=== PATIENT | female | born 1965 | race Caucasian/White ===

== ENCOUNTER 2018-07-01 17:01 | Inpatient (IN) ==
[2018-07-01] MEDS ORDERED: NITROGLYCERIN SL 0.4 MG TABLET SL PRN (17:28)
[2018-07-01] MEDS ORDERED: ENOXAPARIN 100 MG/ML SYRINGE SUBCUT STA (17:28)
[2018-07-01 17:58] LABS: Basophils # 0.1 10*3/uL (0.0-0.2); Basophils % 0.7 % (0.0-0.8); Eosinophils # 0.2 10*3/uL (0.0-0.87); Eosinophils % 1.6 % (0.00-10.9); Hematocrit 43.8 VOL% (35.7-47.0); Hemoglobin 14.8 GM/DL (12.0-16.0); Immature Granulocytes % 0.5 %; Immature Granulocytes Absolute 0.07 #; Lymphocytes # 4.7 10*3/uL (1.4-4.0); Lymphocytes % 34.9 % (21.3-54.2); Mean Corpuscular HGB Conc 33.8 GM/DL (32-36); Mean Corpuscular Hemoglobin 31 PG (27-34); Mean Corpuscular Volume 90.9 FL (87-102); Mean Platelet Volume 8.6 FL (9.6-12.0); Monocytes % 7.3 % (1.7-12.7); Neutrophils # 7.4 10*3/uL (1.4-7.4); Platelet Count 350 T/CUMM (130-400); Red Blood Count 4.82 MC/CUMM (3.8-5.5); Red Cell Distribution Width 12.9 % (9.3-17.3); White Blood Count 13.5 T/CUMM (4-12)
[2018-07-01 18:21] LABS: Albumin 3.8 G/DL (3.4-5.0); Bilirubin,Total 0.4 MG/DL (0.2-1.0); Calcium 8.4 MG/DL (8.5-10.1); Osmolality,Calculated 281.3 MOS/KG (273-304); PT Patient Result 10.2 SECS; Total Protein 7.6 G/DL (6.4-8.3)
[2018-07-01] MEDS ORDERED: ONDANSETRON 4 MG/2 ML VIAL IV PRN (20:43)
[2018-07-01] MEDS ORDERED: MAGNESIUM SULF RIDER 2 GM in PREMIX 1 EACH IV PRN (20:43)
[2018-07-01] MEDS ORDERED: FAMOTIDINE 20 MG TABLET PO PRN (20:43)
[2018-07-01] MEDS ORDERED: HYDROmorphone 2 MG/1 ML VIAL IV PRN (20:43)
[2018-07-01] MEDS ORDERED: POTASSIUM CHLORIDE 20 MEQ TABLET PO PRN (20:43)
[2018-07-01] MEDS ORDERED: ALBUTEROL/IPRATROPIUM 3 ML NEB RESP TX PRN (20:43)
[2018-07-01] MEDS ORDERED: MAGNESIUM SULF RIDER 4 GM in PREMIX 1 EACH IV PRN (20:43)
[2018-07-01] MEDS ORDERED: SODIUM CHLORIDE 0.9% 1,000 ML IV SCH (20:43)
[2018-07-01] MEDS ORDERED: NICOTINE 21 MG/24 HR PATCH TRANSDERM PRN (20:43)
[2018-07-01] MEDS ORDERED: CLOPIDOGREL 75 MG TABLET PO SCH (21:00)
[2018-07-01] MEDS: LORazepam 1 MG TABLET PO SCH (21:20)
[2018-07-01] MEDS: LISINOPRIL 10 MG TABLET PO SCH (21:20)
[2018-07-01] MEDS: methylPREDNISolone SOD SUC 40 MG/1 ML VIAL IV SCH (21:21)
[2018-07-02 05:27] LABS: Basophils # 0.1 10*3/uL (0.0-0.2); Basophils % 0.5 % (0.0-0.8); Eosinophils % 0.1 % (0.00-10.9); Hematocrit 44.9 VOL% (35.7-47.0); Hemoglobin 15.4 GM/DL (12.0-16.0); Immature Granulocytes % 0.9 %; Immature Granulocytes Absolute 0.09 #; Lymphocytes # 2.6 10*3/uL (1.4-4.0); Lymphocytes % 26.1 % (21.3-54.2); Mean Corpuscular HGB Conc 34.3 GM/DL (32-36); Mean Corpuscular Hemoglobin 31 PG (27-34); Mean Platelet Volume 9.1 FL (9.6-12.0); Monocytes # 0.1 10*3/uL (0.11-0.8); Monocytes % 1.4 % (1.7-12.7); NRBC # 0.02 10*3/uL; Neutrophils # 7.1 10*3/uL (1.4-7.4); Platelet Count 362 T/CUMM (130-400); Red Blood Count 4.99 MC/CUMM (3.8-5.5); Red Cell Distribution Width 12.9 % (9.3-17.3)
[2018-07-02] MEDS: methylPREDNISolone SOD SUC 40 MG/1 ML VIAL IV SCH ×3 (05:45→21:56)
[2018-07-02] MEDS ORDERED: ENOXAPARIN 80 MG/0.8 ML SYRINGE SUBCUT SCH (06:00)
[2018-07-02 06:08] LABS: Albumin 3.6 G/DL (3.4-5.0); Bilirubin,Total 0.7 MG/DL (0.2-1.0); Calcium 8.8 MG/DL (8.5-10.1); Osmolality,Calculated 285.4 MOS/KG (273-304); Potassium 4.2 MMOL/L (3.5-5.1); Risk Ratio 10.04; Thyroid Stimulating Hormone 0.613 uIU/ml (0.358-3.74); Total Protein 7.5 G/DL (6.4-8.3); VLDL CHOLESTEROL 69.4 MG/DL
[2018-07-02 08:51] LABS: Troponin I 0.832 NG/ML (0.00-0.045)
[2018-07-02] MEDS ORDERED: ASPIRIN EC 325 MG TABLET PO SCH (09:00)
[2018-07-02] MEDS ORDERED: diphenhydrAMINE CAP 25 MG CAPSULE PO ONE (09:42)
[2018-07-02] MEDS ORDERED: DIAZEPAM 5 MG TABLET PO ONE (09:42)
[2018-07-02] MEDS ORDERED: SODIUM CHLORIDE 0.9% 1,000 ML IV SCH (09:43)
[2018-07-02] MEDS ORDERED: DIAZEPAM 5 MG TABLET ONE (09:53)
[2018-07-02] MEDS ORDERED: diphenhydrAMINE CAP 50 MG CAPSULE ONE (09:53)
[2018-07-02] MEDS: PANTOPRAZOLE 40 MG TABLET PO SCH (10:08)
[2018-07-02] MEDS: LORazepam 1 MG TABLET PO SCH ×3 (10:09→21:55)
[2018-07-02] MEDS: OMEGA 3 ACID ETHYL ESTERS 1 GM CAPSULE PO SCH ×2 (10:09→21:55)
[2018-07-02] MEDS ORDERED: HEPARIN/NACL 0.9% 2 UNITS/ML 1,000 ML IV ONE (10:09)
[2018-07-02] MEDS: FLUTICASONE 50 MCG NASAL SPRAY 16 GM BOTTLE BOTH NARES SCH (10:09)
[2018-07-02] MEDS ORDERED: fentaNYL 100 MCG/2 ML VIAL ONE (10:23)
[2018-07-02] MEDS ORDERED: MIDAZOLAM 2 MG/2 ML VIAL ONE (10:23)
[2018-07-02] MEDS ORDERED: TIROFIBAN 5,000 MCG/100 ML PREMIX IV ONE (10:48)
[2018-07-02] MEDS ORDERED: ENOXAPARIN 60 MG/0.6 ML SYRINGE ONE (10:52)
[2018-07-02] MEDS ORDERED: HEPARIN/NACL 0.9% 2 UNITS/ML 500 ML IV ONE (11:00)
[2018-07-02] MEDS ORDERED: LIDOCAINE 1%/EPI INJ 20 ML VIAL ONE (11:01)
[2018-07-02] MEDS ORDERED: TICAGRELOR 90 MG TABLET ONE (11:11)
[2018-07-02] MEDS ORDERED: CLOPIDOGREL 300 MG TABLET ONE (11:15)
[2018-07-02] MEDS ORDERED: CLOPIDOGREL 300 MG TABLET PO ONE (11:15)
[2018-07-02] MEDS ORDERED: TIROFIBAN 5,000 MCG/100 ML PREMIX IV SCH (11:30)
[2018-07-02] MEDS: LISINOPRIL 10 MG TABLET PO SCH (21:55)
[2018-07-03 04:54] LABS: Basophils % 0.1 % (0.0-0.8); Hemoglobin 13.7 GM/DL (12.0-16.0); Immature Granulocytes % 1.3 %; Immature Granulocytes Absolute 0.33 #; Lymphocytes # 2.8 10*3/uL (1.4-4.0); Lymphocytes % 11.2 % (21.3-54.2); Mean Corpuscular HGB Conc 33.4 GM/DL (32-36); Mean Corpuscular Hemoglobin 31 PG (27-34); Mean Corpuscular Volume 91.5 FL (87-102); Mean Platelet Volume 9.1 FL (9.6-12.0); Monocytes # 1.2 10*3/uL (0.11-0.8); Monocytes % 4.6 % (1.7-12.7); Neutrophils # 20.5 10*3/uL (1.4-7.4); Neutrophils % 82.8 % (38.7-73.9); Platelet Count 346 T/CUMM (130-400); Red Blood Count 4.48 MC/CUMM (3.8-5.5); Red Cell Distribution Width 13.1 % (9.3-17.3); White Blood Count 24.8 T/CUMM (4-12)
[2018-07-03 05:40] LABS: Calcium 8.5 MG/DL (8.5-10.1); Osmolality,Calculated 287.5 MOS/KG (273-304); Potassium 4.2 MMOL/L (3.5-5.1)
[2018-07-03 05:57] LABS: Hypochromasia 1+; Microcytosis Slight; Platelet Estimate Normal
[2018-07-03] MEDS: methylPREDNISolone SOD SUC 40 MG/1 ML VIAL IV SCH (05:58)
[2018-07-03 08:11] VITALS: BP 142/65
[2018-07-03] MEDS ORDERED: CLOPIDOGREL 75 MG TABLET PO SCH (09:00)
[2018-07-03] MEDS ORDERED: ASPIRIN EC 81 MG TABLET PO SCH (09:00)
[2018-07-03] MEDS: OMEGA 3 ACID ETHYL ESTERS 1 GM CAPSULE PO SCH (09:36)
[2018-07-03] MEDS: PANTOPRAZOLE 40 MG TABLET PO SCH (09:36)
[2018-07-03] MEDS: LORazepam 1 MG TABLET PO SCH (09:36)
[2018-07-03] MEDS: FLUTICASONE 50 MCG NASAL SPRAY 16 GM BOTTLE BOTH NARES SCH (09:37)
== END 2018-07-03 10:35 | disposition home or self-care (01) | DRG 247 ==
LOC: EDUNIT# → N.ED 17:01 → N.EDINP 18:58 → N.TELEN 20:39
PROVIDERS: ADMIT Internal Medicine Cardiovascular Disease; ATTEND Internal Medicine Cardiovascular Disease
PROC: CLCCHCL (ICD-10-PCS; 2018-07-02 10:45)

== ENCOUNTER 2020-05-04 02:57 | Observation (INO) ==
[2020-05-04] MEDS ORDERED: HYDROmorphone 2 MG/1 ML VIAL IV STA (03:22)
[2020-05-04] MEDS ORDERED: ONDANSETRON 4 MG/2 ML VIAL IV STA (03:22)
[2020-05-04] MEDS ORDERED: METOPROLOL TARTRATE 25 MG TABLET PO STA (03:22)
[2020-05-04] MEDS ORDERED: ASPIRIN 325 MG TABLET PO STA (03:22)
[2020-05-04] MEDS ORDERED: ENOXAPARIN 100 MG/ML SYRINGE SUBCUT STA (03:23)
[2020-05-04] MEDS ORDERED: ENOXAPARIN 80 MG/0.8 ML SYRINGE SUBCUT STA (03:24)
[2020-05-04 03:37] LABS: Basophils # 0.1 10*3/uL (0.0-0.2); Basophils % 0.6 % (0.0-0.8); Eosinophils # 0.3 10*3/uL (0.0-0.87); Eosinophils % 2.2 % (0.00-10.9); Hematocrit 44.2 VOL% (35.7-47.0); Hemoglobin 14.6 GM/DL (12.0-16.0); Immature Granulocytes % 0.3 %; Immature Granulocytes Absolute 0.04 #; Lymphocytes % 43.2 % (21.3-54.2); Mean Corpuscular Volume 94.6 FL (87-102); Mean Platelet Volume 8.6 FL (9.6-12.0); Monocytes % 9.3 % (1.7-12.7); Neutrophils % 44.4 % (38.7-73.9); Platelet Count 304 T/CUMM (130-400); Red Blood Count 4.67 MC/CUMM (3.8-5.5); Red Cell Distribution Width 13.5 % (9.3-17.3); White Blood Count 11.5 T/CUMM (4-12)
[2020-05-04 03:45] LABS: Alanine Aminotransferase 25 U/L (13-56); Albumin 3.5 G/DL (3.4-5.0); Alkaline Phosphatase 77 U/L (45-117); Aspartate Amino Transferase 19 U/L (0-37); Bilirubin,Total < 0.39 MG/DL (0.2-1.0); Blood Urea Nitrogen 20 MG/DL (7-18); Calcium 8.3 MG/DL (8.5-10.1); Estimated Glom Filtration Rate 75 ML/MIN; Glucose 173 MG/DL (74-106); Osmolality,Calculated 285.4 MOS/KG (273-304); Total Protein 7.3 G/DL (6.4-8.3)
[2020-05-04 03:47] LABS: PT Patient Result 10.3 SECS (9.8-11.9)
[2020-05-04] MEDS ORDERED: DEXTROSE 50% 25 GM/50 ML VIAL IV PRN (04:22)
[2020-05-04] MEDS ORDERED: NICOTINE 21 MG/24 HR PATCH TRANSDERM PRN (04:22)
[2020-05-04] MEDS ORDERED: ONDANSETRON 4 MG/2 ML VIAL IV PRN (04:22)
[2020-05-04] MEDS ORDERED: guaiFENesin/DM ER 600-30 MG TABLET PO PRN (04:22)
[2020-05-04] MEDS ORDERED: ACETAMINOPHEN 325 MG TABLET PO PRN (04:22)
[2020-05-04] MEDS ORDERED: GLUCAGON 1 MG VIAL IM PRN (04:22)
[2020-05-04] MEDS ORDERED: hydrALAZINE 20 MG/1 ML VIAL IV PRN (04:22)
[2020-05-04] MEDS ORDERED: diphenhydrAMINE CAP 25 MG CAPSULE PO PRN (04:22)
[2020-05-04] MEDS ORDERED: BENZONATATE 100 MG CAPSULE PO PRN (07:39)
[2020-05-04 08:11] LABS: Risk Ratio 11.91; VLDL CHOLESTEROL 109.8 MG/DL
[2020-05-04] MEDS ORDERED: METOPROLOL TARTRATE 25 MG TABLET PO SCH ×2 (09:00→21:00)
[2020-05-04] MEDS ORDERED: CLOPIDOGREL 75 MG TABLET PO SCH (09:00)
[2020-05-04 09:28] LABS: Troponin I 0.148 NG/ML (0.00-0.045)
[2020-05-04 11:15] LABS: Troponin I 0.157 NG/ML (0.00-0.045)
[2020-05-04 11:57] VITALS: BP 131/66
[2020-05-04] MEDS ORDERED: LIDOCAINE 1% 20 ML VIAL ONE (12:21)
[2020-05-04] MEDS ORDERED: HEPARIN/NACL 0.9% 2 UNITS/ML 1,000 ML IV ONE (12:21)
[2020-05-04] MEDS ORDERED: ROSUVASTATIN 20 MG TABLET PO SCH (21:00)
[2020-05-04] MEDS ORDERED: FAMOTIDINE 20 MG TABLET PO SCH (21:00)
[2020-05-05] MEDS ORDERED: ENOXAPARIN 80 MG/0.8 ML SYRINGE SUBCUT SCH (04:30)
[2020-05-05] MEDS ORDERED: PANTOPRAZOLE 40 MG TABLET PO SCH (07:30)
[2020-05-05] MEDS ORDERED: ASPIRIN EC 81 MG TABLET PO SCH (09:00)
[2020-05-05] MEDS ORDERED: LOSARTAN 50 MG TABLET PO SCH (09:00)
== END 2020-05-04 14:45 | disposition home or self-care (01) ==
LOC: EDBD → EDUNIT# → N.ED 02:57 → N.EDINP 02:57 → SUATTDRO 04:22 → N.TELES 05:16
PROVIDERS: ADMIT Internal Medicine; ATTEND Internal Medicine

== ENCOUNTER 2021-01-26 22:14 | Inpatient (IN) ==
[2021-01-26 22:57] LABS: Basophils # 0.1 10*3/uL (0.0-0.2); Basophils % 0.5 % (0.0-0.8); Eosinophils # 0.3 10*3/uL (0.0-0.87); Eosinophils % 2.6 % (0.00-10.9); Hematocrit 40.8 VOL% (35.7-47.0); Hemoglobin 13.9 GM/DL (12.0-16.0); Immature Granulocytes % 0.4 %; Immature Granulocytes Absolute 0.04 #; Lymphocytes # 3.9 10*3/uL (1.4-4.0); Mean Corpuscular HGB Conc 34.1 GM/DL (32-36); Mean Corpuscular Volume 93.2 FL (87-102); Monocytes % 7.9 % (1.7-12.7); Neutrophils % 49.6 % (38.7-73.9); Platelet Count 273 T/CUMM (130-400); Red Blood Count 4.38 MC/CUMM (3.8-5.5); Red Cell Distribution Width 12.5 % (9.3-17.3); White Blood Count 10.1 T/CUMM (4-12)
[2021-01-26 23:06] LABS: Alanine Aminotransferase 27 U/L (13-56); Albumin 3.4 G/DL (3.4-5.0); Alkaline Phosphatase 92 U/L (45-117); Aspartate Amino Transferase 18 U/L (0-37); Bilirubin,Total < 0.39 MG/DL (0.2-1.0); Blood Urea Nitrogen 15 MG/DL (7-18); Calcium 8.3 MG/DL (8.5-10.1); Carbon Dioxide 23 MMOL/L (21-32); Estimated Glom Filtration Rate 78 ML/MIN; Glucose 353 MG/DL (74-106); Osmolality,Calculated 289.7 MOS/KG (273-304); Potassium 3.4 MMOL/L (3.5-5.1); Sodium 138 MMOL/L (136-145); Total Protein 6.8 G/DL (6.4-8.2)
[2021-01-26] MEDS ORDERED: ENOXAPARIN 30 MG/0.3 ML SYRINGE SUBCUT STA (23:24)
[2021-01-26] MEDS ORDERED: ENOXAPARIN 100 MG/ML SYRINGE SUBCUT ONE (23:30)
[2021-01-26] MEDS ORDERED: POTASSIUM CHLORIDE 20 MEQ TABLET PO STA (23:34)
[2021-01-27] MEDS ORDERED: DEXTROSE 50% 25 GM/50 ML VIAL IV PRN (00:31)
[2021-01-27] MEDS ORDERED: NICOTINE 21 MG/24 HR PATCH TRANSDERM PRN (00:31)
[2021-01-27] MEDS ORDERED: MORPHINE 4 MG/1 ML VIAL IV PRN (00:31)
[2021-01-27] MEDS ORDERED: ZALEPLON 5 MG CAPSULE PO PRN (00:31)
[2021-01-27] MEDS ORDERED: GLUCAGON 1 MG VIAL IM PRN (00:31)
[2021-01-27] MEDS ORDERED: hydrALAZINE 20 MG/1 ML VIAL IV PRN (00:31)
[2021-01-27] MEDS ORDERED: guaiFENesin/DM ER 600-30 MG TABLET PO PRN (00:31)
[2021-01-27] MEDS ORDERED: ONDANSETRON 4 MG/2 ML VIAL IV PRN (00:31)
[2021-01-27] MEDS ORDERED: diphenhydrAMINE CAP 25 MG CAPSULE PO PRN (00:31)
[2021-01-27] MEDS ORDERED: ACETAMINOPHEN 325 MG TABLET PO PRN (02:41)
[2021-01-27] MEDS: NITROGLYCERIN SL 0.4 MG TABLET SL PRN ×2 (03:24→03:29)
[2021-01-27 06:24] LABS: Basophils # 0.1 10*3/uL (0.0-0.2); Basophils % 0.5 % (0.0-0.8); Eosinophils # 0.3 10*3/uL (0.0-0.87); Eosinophils % 2.6 % (0.00-10.9); Hematocrit 40.7 VOL% (35.7-47.0); Hemoglobin 14.2 GM/DL (12.0-16.0); Immature Granulocytes % 0.3 %; Immature Granulocytes Absolute 0.03 #; Lymphocytes # 4.5 10*3/uL (1.4-4.0); Lymphocytes % 45.9 % (21.3-54.2); Mean Corpuscular HGB Conc 34.9 GM/DL (32-36); Mean Corpuscular Volume 91.7 FL (87-102); Mean Platelet Volume 8.9 FL (9.6-12.0); Monocytes % 7.7 % (1.7-12.7); Platelet Count 262 T/CUMM (130-400); Red Blood Count 4.44 MC/CUMM (3.8-5.5); Red Cell Distribution Width 12.5 % (9.3-17.3); White Blood Count 9.7 T/CUMM (4-12)
[2021-01-27 06:43] LABS: Calcium 8.4 MG/DL (8.5-10.1); Osmolality,Calculated 288.4 MOS/KG (273-304); Potassium 3.7 MMOL/L (3.5-5.1)
[2021-01-27 06:44] LABS: Eosinophils 2 % (0-10); Lymphocytes 36 % (20-55); Platelet Estimate Adequate; Segmented Neutrophils 59 % (50-85); Total Cells Counted 100
[2021-01-27] MEDS ORDERED: POTASSIUM CHLORIDE RIDER 10 MEQ in PREMIX 1 EACH IV PRN (08:56)
[2021-01-27] MEDS ORDERED: MAGNESIUM SULF RIDER 2 GM in PREMIX 1 EACH IV PRN (08:56)
[2021-01-27] MEDS: INSULIN LISPRO 100 UNIT/ML SUBCUT SCH ×4 (09:09→20:59)
[2021-01-27] MEDS: CLOPIDOGREL 75 MG TABLET PO SCH (09:43)
[2021-01-27] MEDS: PANTOPRAZOLE 40 MG TABLET PO SCH ×2 (09:43→09:48)
[2021-01-27] MEDS: LOSARTAN 50 MG TABLET PO SCH (09:43)
[2021-01-27] MEDS: ASPIRIN EC 81 MG TABLET PO SCH (09:43)
[2021-01-27] MEDS: METOPROLOL TARTRATE 25 MG TABLET PO SCH ×3 (09:44→20:59)
[2021-01-27] MEDS ORDERED: ENOXAPARIN 80 MG/0.8 ML SYRINGE SUBCUT ONE (11:00)
[2021-01-28 05:46] LABS: Basophils # 0.1 10*3/uL (0.0-0.2); Basophils % 0.5 % (0.0-0.8); Eosinophils # 0.2 10*3/uL (0.0-0.87); Eosinophils % 1.7 % (0.00-10.9); Hematocrit 42.1 VOL% (35.7-47.0); Hemoglobin 14.3 GM/DL (12.0-16.0); Immature Granulocytes % 0.3 %; Immature Granulocytes Absolute 0.03 #; Lymphocytes % 41.1 % (21.3-54.2); Mean Corpuscular Volume 92.9 FL (87-102); Neutrophils % 48.4 % (38.7-73.9); Platelet Count 260 T/CUMM (130-400); Red Blood Count 4.53 MC/CUMM (3.8-5.5); Red Cell Distribution Width 12.6 % (9.3-17.3); White Blood Count 9.8 T/CUMM (4-12)
[2021-01-28 06:09] LABS: Calcium 8.7 MG/DL (8.5-10.1); Osmolality,Calculated 286.7 MOS/KG (273-304); Potassium 3.3 MMOL/L (3.5-5.1)
[2021-01-28 06:16] LABS: Platelet Estimate Adequate
[2021-01-28] MEDS ORDERED: POTASSIUM CHLORIDE 20 MEQ TABLET PO PRN (07:43)
[2021-01-28] MEDS: ASPIRIN EC 81 MG TABLET PO SCH (09:13)
[2021-01-28] MEDS: CLOPIDOGREL 75 MG TABLET PO SCH (09:13)
[2021-01-28] MEDS: LOSARTAN 50 MG TABLET PO SCH (09:13)
[2021-01-28] MEDS: METOPROLOL TARTRATE 25 MG TABLET PO SCH ×2 (09:13→20:32)
[2021-01-28] MEDS: PANTOPRAZOLE 40 MG TABLET PO SCH (09:13)
[2021-01-28] MEDS: INSULIN LISPRO 100 UNIT/ML SUBCUT SCH ×4 (09:14→20:33)
[2021-01-28] MEDS ORDERED: POTASSIUM CHLORIDE RIDER 10 MEQ in PREMIX 1 EACH IV PRN (09:33)
[2021-01-28] MEDS ORDERED: MAGNESIUM SULF RIDER 2 GM in PREMIX 1 EACH IV PRN (09:33)
[2021-01-28] MEDS ORDERED: BENZONATATE 100 MG CAPSULE PO PRN (09:34)
[2021-01-28] MEDS ORDERED: NITROGLYCERIN SL 0.4 MG TABLET SL PRN (09:34)
[2021-01-28] MEDS ORDERED: diphenhydrAMINE CAP 25 MG CAPSULE PO ONE (12:30)
[2021-01-28] MEDS ORDERED: DIAZEPAM 5 MG TABLET PO ONE (12:30)
[2021-01-28] MEDS: SODIUM CHLORIDE 0.45% 1,000 ML IV SCH ×3 (12:46→23:59)
[2021-01-28] MEDS ORDERED: HEPARIN/NACL 0.9% 2 UNITS/ML 1,000 ML IV ONE (13:05)
[2021-01-28] MEDS ORDERED: LIDOCAINE 1% 20 ML VIAL ONE (13:05)
[2021-01-28] MEDS ORDERED: fentaNYL 100 MCG/2 ML VIAL ONE ×3 (13:52→14:59)
[2021-01-28] MEDS ORDERED: MIDAZOLAM 2 MG/2 ML VIAL ONE ×5 (13:52→14:59)
[2021-01-28] MEDS ORDERED: BIVALIRUDIN 250 MG VIAL IV ONE (14:28)
[2021-01-28] MEDS ORDERED: HEPARIN/NACL 0.9% 2 UNITS/ML 500 ML IV ONE (14:45)
[2021-01-29 04:16] LABS: Basophils # 0.1 10*3/uL (0.0-0.2); Basophils % 0.4 % (0.0-0.8); Eosinophils # 0.2 10*3/uL (0.0-0.87); Eosinophils % 1.7 % (0.00-10.9); Hematocrit 40.9 VOL% (35.7-47.0); Hemoglobin 13.9 GM/DL (12.0-16.0); Immature Granulocytes % 0.4 %; Immature Granulocytes Absolute 0.05 #; Lymphocytes % 34.4 % (21.3-54.2); Mean Corpuscular Volume 94.2 FL (87-102); Mean Platelet Volume 8.9 FL (9.6-12.0); Monocytes % 7.8 % (1.7-12.7); Neutrophils % 55.3 % (38.7-73.9); Platelet Count 246 T/CUMM (130-400); Red Blood Count 4.34 MC/CUMM (3.8-5.5); Red Cell Distribution Width 12.6 % (9.3-17.3); White Blood Count 11.5 T/CUMM (4-12)
[2021-01-29 04:29] LABS: Calcium 8.3 MG/DL (8.5-10.1); Osmolality,Calculated 282.5 MOS/KG (273-304); Potassium 3.6 MMOL/L (3.5-5.1)
[2021-01-29] MEDS: SODIUM CHLORIDE 0.45% 1,000 ML IV SCH ×2 (07:59→11:03)
[2021-01-29] MEDS: LOSARTAN 50 MG TABLET PO SCH (08:41)
[2021-01-29] MEDS: METOPROLOL TARTRATE 25 MG TABLET PO SCH (08:41)
[2021-01-29] MEDS: ASPIRIN EC 81 MG TABLET PO SCH (08:41)
[2021-01-29] MEDS: PANTOPRAZOLE 40 MG TABLET PO SCH (08:41)
[2021-01-29] MEDS: CLOPIDOGREL 75 MG TABLET PO SCH (08:41)
[2021-01-29] MEDS: INSULIN LISPRO 100 UNIT/ML SUBCUT SCH (08:42)
[2021-01-29 08:59] VITALS: BP 167/76
== END 2021-01-29 11:50 | disposition home or self-care (01) | DRG 246 ==
LOC: EDUNIT# → EDBD → N.EDINP 22:14 → N.ED 22:14 → SUATTDRO 01-27 00:31 → N.EDINP 01-27 02:05 → N.TELES 01-27 02:22 → SUATTDRO 01-28 10:43
PROVIDERS: ADMIT Internal Medicine Geriatric Medicine; ATTEND Internal Medicine
PROC: CLCCHCL (ICD-10-PCS; 2021-01-28 13:45)

== ENCOUNTER 2022-09-23 14:35 | Observation (INO) ==
[2022-09-23] MEDS ORDERED: ASPIRIN 325 MG TABLET PO STA (14:52)
[2022-09-23] MEDS ORDERED: fentaNYL 100 MCG/2 ML VIAL IV STA (15:00)
[2022-09-23] MEDS ORDERED: ONDANSETRON 4 MG/2 ML VIAL IV STA (15:00)
[2022-09-23 15:11] LABS: Basophils # 0.1 10*3/uL (0.0-0.2); Basophils % 0.6 % (0.0-0.8); Eosinophils # 0.4 10*3/uL (0.0-0.87); Eosinophils % 3.5 % (0.00-10.9); Hematocrit 46.1 VOL% (35.7-47.0); Hemoglobin 15.7 GM/DL (12.0-16.0); Immature Granulocytes % 0.4 %; Immature Granulocytes Absolute 0.04 #; Lymphocytes # 4.5 10*3/uL (1.4-4.0); Mean Corpuscular HGB Conc 34.1 GM/DL (32-36); Mean Corpuscular Volume 91.7 FL (87-102); Monocytes # 0.9 10*3/uL (0.11-0.8); Monocytes % 8.5 % (1.7-12.7); Platelet Count 366 T/CUMM (130-400); Red Blood Count 5.03 MC/CUMM (3.8-5.5); White Blood Count 10.9 T/CUMM (4-12)
[2022-09-23 15:23] LABS: INR 0.9; PT Patient Result 10.3 SECS (10.1-12.1); Partial Thromboplastin Time 28.5 SECS (23.7-32.9)
[2022-09-23 15:32] LABS: Band Neutrophils 1 % (0-10); Eosinophils 2 % (0-10); Lymphocytes 37 % (20-55); Platelet Estimate Normal; Total Cells Counted 100
[2022-09-23 15:39] LABS: Alanine Aminotransferase 26 U/L (13-56); Albumin 3.9 G/DL (3.4-5.0); Alkaline Phosphatase 100 U/L (45-117); Aspartate Amino Transferase 15 U/L (0-37); Bilirubin,Total < 0.39 MG/DL (0.20-1.00); Blood Urea Nitrogen 16 MG/DL (7-18); Calcium 9.5 MG/DL (8.5-10.1); Carbon Dioxide 25 MMOL/L (21-32); Chloride 110 MMOL/L (98-107); Glucose 129 MG/DL (74-106); Osmolality,Calculated 285.1 MOS/KG (273-304); Potassium 3.9 MMOL/L (3.5-5.1); Sodium 142 MMOL/L (136-145); Total Protein 7.5 G/DL (6.4-8.2)
[2022-09-23] MEDS ORDERED: ENOXAPARIN 80 MG/0.8 ML SYRINGE SUBCUT STA (15:42)
[2022-09-23] MEDS ORDERED: LORazepam 1 MG TABLET PO PRN (17:25)
[2022-09-23] MEDS ORDERED: ONDANSETRON 4 MG/2 ML VIAL IV PRN (17:40)
[2022-09-23] MEDS ORDERED: hydrALAZINE 20 MG/1 ML VIAL IV PRN (17:40)
[2022-09-23] MEDS ORDERED: ACETAMINOPHEN 325 MG TABLET PO PRN (17:40)
[2022-09-23] MEDS ORDERED: DEXTROSE 10% 250 ML BAG IV PRN (17:44)
[2022-09-23] MEDS ORDERED: GLUCAGON 1 MG VIAL IM PRN (17:44)
[2022-09-23 18:17] LABS: Thyroid Stimulating Hormone 0.914 uIU/ml (0.358-3.74)
[2022-09-23] MEDS: INSULIN LISPRO 100 UNIT/ML SUBCUT SCH (21:12)
[2022-09-23] MEDS: GABAPENTIN 100 MG CAPSULE PO SCH (21:17)
[2022-09-23] MEDS: NITROGLYCERIN 2% OINT 1 INCH/GM PACK TOP SCH (21:17)
[2022-09-23] MEDS: METOPROLOL TARTRATE 25 MG TABLET PO SCH (21:17)
[2022-09-23] MEDS: levETIRAcetam 500 MG TABLET PO SCH (21:17)
[2022-09-24] MEDS: NITROGLYCERIN 2% OINT 1 INCH/GM PACK TOP SCH ×2 (00:02→05:31)
[2022-09-24] MEDS ORDERED: ENOXAPARIN 80 MG/0.8 ML SYRINGE SUBCUT SCH (04:00)
[2022-09-24 06:25] LABS: Basophils # 0.1 10*3/uL (0.0-0.2); Basophils % 0.5 % (0.0-0.8); Eosinophils # 0.4 10*3/uL (0.0-0.87); Eosinophils % 2.9 % (0.00-10.9); Hematocrit 41.9 VOL% (35.7-47.0); Hemoglobin 14.1 GM/DL (12.0-16.0); Immature Granulocytes % 0.4 %; Immature Granulocytes Absolute 0.05 #; Lymphocytes # 5.8 10*3/uL (1.4-4.0); Lymphocytes % 48.1 % (21.3-54.2); Mean Corpuscular HGB Conc 33.7 GM/DL (32-36); Mean Corpuscular Volume 94.2 FL (87-102); Mean Platelet Volume 9.8 FL (9.6-12.0); Monocytes # 0.9 10*3/uL (0.11-0.8); Monocytes % 7.7 % (1.7-12.7); Neutrophils % 40.4 % (38.7-73.9); Platelet Count 331 T/CUMM (130-400); Red Blood Count 4.45 MC/CUMM (3.8-5.5); Red Cell Distribution Width 12.9 % (9.3-17.3); White Blood Count 12.1 T/CUMM (4-12)
[2022-09-24 07:19] LABS: Calcium 8.9 MG/DL (8.5-10.1); Osmolality,Calculated 286.1 MOS/KG (273-304); Potassium 3.6 MMOL/L (3.5-5.1); Risk Ratio 9.65; VLDL Cholesterol 59.4 MG/DL
[2022-09-24] MEDS: INSULIN LISPRO 100 UNIT/ML SUBCUT SCH (08:36)
[2022-09-24] MEDS ORDERED: PANTOPRAZOLE 40 MG TABLET PO SCH (09:00)
[2022-09-24] MEDS ORDERED: CLOPIDOGREL 75 MG TABLET PO SCH (09:00)
[2022-09-24] MEDS ORDERED: EZETIMIBE 10 MG TABLET PO SCH (09:00)
[2022-09-24] MEDS: levETIRAcetam 500 MG TABLET PO SCH (10:27)
[2022-09-24] MEDS: GABAPENTIN 100 MG CAPSULE PO SCH (10:28)
[2022-09-24] MEDS: METOPROLOL TARTRATE 25 MG TABLET PO SCH (10:28)
[2022-09-24 10:47] VITALS: BP 118/67
[2022-09-25] MEDS ORDERED: ISOSORBIDE MONONITRATE 30 MG TABLET PO SCH (09:00)
== END 2022-09-24 10:35 | disposition home or self-care (01) ==
LOC: N.ED 14:35 → N.EDINP 14:35 → SUATTDRO 17:40 → N.EDINP 09-24 10:39
PROVIDERS: ADMIT Hospitalist; ATTEND Internal Medicine

== ENCOUNTER 2022-10-03 15:30 | Inpatient (IN) ==
[2022-10-03] MEDS ORDERED: ACETAMINOPHEN 325 MG TABLET PO PRN (19:21)
[2022-10-03] MEDS ORDERED: ONDANSETRON 4 MG/2 ML VIAL IV PRN (19:21)
[2022-10-03] MEDS ORDERED: hydrALAZINE 20 MG/1 ML VIAL IV PRN (19:21)
[2022-10-03] MEDS ORDERED: LORazepam 1 MG TABLET PO PRN (19:24)
[2022-10-03] MEDS ORDERED: ASPIRIN CHEW 81 MG TABLET PO ONE (19:25)
[2022-10-03] MEDS ORDERED: ALUM/MAG/SIMETH/LIDO VISC 1:1 30 ML BOTTLE PO ONE (19:26)
[2022-10-03 19:55] LABS: Basophils # 0.1 10*3/uL (0.0-0.2); Basophils % 0.5 % (0.0-0.8); Eosinophils # 0.4 10*3/uL (0.0-0.87); Eosinophils % 3.4 % (0.00-10.9); Hematocrit 42.6 VOL% (35.7-47.0); Hemoglobin 14.2 GM/DL (12.0-16.0); Immature Granulocytes % 0.5 %; Immature Granulocytes Absolute 0.05 #; Lymphocytes # 5.2 10*3/uL (1.4-4.0); Lymphocytes % 47.9 % (21.3-54.2); Mean Corpuscular HGB Conc 33.3 GM/DL (32-36); Mean Corpuscular Volume 91.8 FL (87-102); Mean Platelet Volume 9.1 FL (9.6-12.0); Monocytes # 0.8 10*3/uL (0.11-0.8); Monocytes % 7.7 % (1.7-12.7); Platelet Count 336 T/CUMM (130-400); Red Blood Count 4.64 MC/CUMM (3.8-5.5); Red Cell Distribution Width 12.9 % (9.3-17.3); White Blood Count 10.9 T/CUMM (4-12)
[2022-10-03 20:29] LABS: Albumin 3.5 G/DL (3.4-5.0); Bilirubin,Total 0.4 MG/DL (0.20-1.00); Osmolality,Calculated 282.1 MOS/KG (273-304); Potassium 3.5 MMOL/L (3.5-5.1); Thyroid Stimulating Hormone 0.809 uIU/ml (0.358-3.74); Total Protein 7.1 G/DL (6.4-8.2)
[2022-10-03] MEDS ORDERED: ENOXAPARIN 40 MG/0.4 ML SYRINGE SUBCUT SCH (21:00)
[2022-10-03] MEDS ORDERED: METOPROLOL TARTRATE 25 MG TABLET PO SCH (21:00)
[2022-10-03] MEDS: GABAPENTIN 100 MG CAPSULE PO SCH (23:25)
[2022-10-03] MEDS ORDERED: HEPARIN DRIP 25,000 UNITS/500 ML PREMIX IV SCH (23:30)
[2022-10-03] MEDS: levETIRAcetam 500 MG TABLET PO SCH (23:47)
[2022-10-04 00:26] LABS: Basophils # 0.1 10*3/uL (0.0-0.2); Basophils % 0.7 % (0.0-0.8); Eosinophils # 0.5 10*3/uL (0.0-0.87); Hematocrit 42.4 VOL% (35.7-47.0); Hemoglobin 14.4 GM/DL (12.0-16.0); Immature Granulocytes % 0.3 %; Immature Granulocytes Absolute 0.03 #; Lymphocytes % 50.3 % (21.3-54.2); Mean Corpuscular Volume 91.2 FL (87-102); Mean Platelet Volume 10.1 FL (9.6-12.0); Monocytes % 8.3 % (1.7-12.7); Neutrophils % 36.4 % (38.7-73.9); Platelet Count 283 T/CUMM (130-400); Red Blood Count 4.65 MC/CUMM (3.8-5.5)
[2022-10-04 00:38] LABS: Alanine Aminotransferase 31 U/L (13-56); Albumin 3.1 G/DL (3.4-5.0); Alkaline Phosphatase 82 U/L (45-117); Aspartate Amino Transferase 21 U/L (0-37); Bilirubin,Total < 0.39 MG/DL (0.20-1.00); Blood Urea Nitrogen 9 MG/DL (7-18); Calcium 8.5 MG/DL (8.5-10.1); Carbon Dioxide 25 MMOL/L (21-32); Chloride 109 MMOL/L (98-107); Cholesterol 243 MG/DL (50-200); Glucose 174 MG/DL (74-106); HDL Cholesterol 25 MG/DL (40-60); Osmolality,Calculated 281.4 MOS/KG (273-304); Potassium 3.3 MMOL/L (3.5-5.1); Risk Ratio 9.72; Sodium 140 MMOL/L (136-145); Total Protein 6.8 G/DL (6.4-8.2); Triglycerides 277 MG/DL (2-150); VLDL Cholesterol 55.4 MG/DL
[2022-10-04 00:50] LABS: Eosinophils 5 % (0-10); Lymphocytes 49 % (20-55); Total Cells Counted 100
[2022-10-04 00:52] LABS: Platelet Estimate Normal
[2022-10-04 00:53] LABS: Atypical Lymphocytes Few
[2022-10-04 07:48] LABS: Bacteria,Urine Occasional /HPF (Few); Bilirubin,Urine Negative (Negative); Blood, Urine Negative (Negative); Glucose,Urine (UA) Negative (Negative); Ketones,Urine Negative (Negative); Mucus,Urine Occasional /LPF (Occasional); Nitrite,Urine Negative (Negative); Protein,Urine Negative (Negative); RBC,Urine 1 /HPF (0-4); Squamous Epithelial Cell,Urine Occasional /HPF (0-10); Urine Appearance Clear (Clear); Urine Color Yellow (Yellow); Urine Urobilinogen 0.2 eU/dL (<2.0)
[2022-10-04] MEDS: ALBUTEROL 2.5 MG/3 ML NEB RESP TX SCH ×3 (07:57→13:35)
[2022-10-04] MEDS ORDERED: POTASSIUM CHLORIDE 20 MEQ TABLET PO ONE ×2 (08:22→10:26)
[2022-10-04] MEDS ORDERED: CLOPIDOGREL 75 MG TABLET PO SCH (09:00)
[2022-10-04] MEDS ORDERED: PANTOPRAZOLE 40 MG TABLET PO SCH (09:00)
[2022-10-04] MEDS ORDERED: ASPIRIN CHEW 81 MG TABLET PO SCH (09:00)
[2022-10-04] MEDS ORDERED: EZETIMIBE 10 MG TABLET PO SCH (09:00)
[2022-10-04] MEDS ORDERED: ISOSORBIDE MONONITRATE 30 MG TABLET PO SCH (09:00)
[2022-10-04] MEDS ORDERED: LOSARTAN 50 MG TABLET PO SCH (09:00)
[2022-10-04] MEDS ORDERED: METOPROLOL TARTRATE 25 MG TABLET PO SCH (09:00)
[2022-10-04] MEDS: levETIRAcetam 500 MG TABLET PO SCH (09:12)
[2022-10-04] MEDS: GABAPENTIN 100 MG CAPSULE PO SCH (09:13)
[2022-10-04] MEDS ORDERED: ASCORBIC ACID 500 MG TABLET PO SCH (10:30)
[2022-10-04] MEDS ORDERED: DEXTROSE 10% 250 ML BAG IV PRN (13:07)
[2022-10-04] MEDS ORDERED: GLUCAGON 1 MG VIAL IM PRN (13:07)
[2022-10-04 14:11] VITALS: BP 132/65
[2022-10-04] MEDS ORDERED: INSULIN LISPRO 100 UNIT/ML SUBCUT SCH (16:30)
[2022-10-04] MEDS ORDERED: POTASSIUM CHLORIDE 20 MEQ TABLET PO SCH (21:00)
== END 2022-10-04 14:15 | disposition left against medical advice (07) | DRG 281 ==
LOC: N.TELES → SUATTDRO 17:56
PROVIDERS: ADMIT Internal Medicine; ATTEND Internal Medicine